=== PATIENT | female | born 1965 | race Caucasian/White ===

== ENCOUNTER 2022-03-09 09:19 | Emergency (ER) | payer OTHER ==
[~2022-03-09] VITALS: Ht 167.6 cm; Wt 75.8 kg
[2022-03-09] MEDS ORDERED: PREDNISONE20 MG PO (10:42)
== END 2022-03-09 10:52 | disposition home or self-care (01) ==
LOC: ED 09:19
DX: J98.01 Acute bronchospasm (principal)
CPT/HCPCS: 71045; 94664; J7512